=== PATIENT | male | born 1945 | race Caucasian/White ===

== ENCOUNTER → 2023-11-12 08:11 | Outpatient (REF) | payer MEDICARE, SELFPAY ==
[2023-11-12 09:19] LABS: Hemoglobin 14.5 g/dL (13.0-18.0)
[2023-11-12 09:42] LABS: ALT (SGPT) 17 U/L (0-50); AST (SGOT) 29 U/L (17-59); Blood Urea Nitrogen 41 mg/dl (9-20); Calcium 9.4 mg/dl (8.4-10.2); Carbon Dioxide 25 mmol/L (22-30); Chloride 104 mmol/L (98-107); Glucose 85 mg/dl (70-99); HDL Cholesterol 42 mg/dl; LDL Cholesterol, Calculated 70 mg/dl; Phosphorus 4.2 mg/dl (2.5-4.5); Potassium 4.5 mmol/L (3.5-5.1); Sodium 137 mmol/L (135-145); Total Cholesterol 138 mg/dl (50-199); Triglyceride 134 mg/dl (10-149); Very Low Density Lipoprotein 26 mg/dl (0-30); eGFR 31.82
[2023-11-12 09:44] LABS: Calcium 9.5 mg/dl (8.4-10.2)
[2023-11-12 10:24] LABS: Protein/creatinine Ratio 1.5; Urine Protein 69 mg/dl
[2023-11-12 14:51] LABS: Intact PTH 98.9 pg/ml (13.6-85.8)
== END ==
LOC: REG 08:11
PROVIDERS: ATTENDING PHYSICIAN Internal Medicine; FAMILY PHYSICIAN Specialist; REFERRING PHYSICIAN Internal Medicine
DX: E78.2 Mixed hyperlipidemia (principal); E78.1 Pure hyperglyceridemia; I10 Essential (primary) hypertension; N17.9 Acute kidney failure, unspecified
CPT/HCPCS: 36415; 80048; 80061; 82570; 83970; 84100; 84156; 84450; 84460; 85018

== ENCOUNTER → 2024-04-27 08:59 | Outpatient (REF) | payer MEDICARE, SELFPAY ==
[2024-04-27 10:09] LABS: Hemoglobin 14.9 g/dL (13.0-18.0)
[2024-04-27 10:46] LABS: Protein/creatinine Ratio 1.1; Urine Protein 195 mg/dl
[2024-04-27 11:20] LABS: Blood Urea Nitrogen 49 mg/dl (9-20); Carbon Dioxide 26 mmol/L (22-30); Chloride 101 mmol/L (98-107); Glucose 77 mg/dl (70-99); Phosphorus 4.7 mg/dl (2.5-4.5); Potassium 4.3 mmol/L (3.5-5.1); Sodium 141 mmol/L (135-145); eGFR 27.11
[2024-04-30 09:26] LABS: Intact PTH 80.6 pg/ml (13.6-85.8)
== END ==
LOC: REG 08:59
PROVIDERS: ATTENDING PHYSICIAN Specialist; FAMILY PHYSICIAN Internal Medicine; REFERRING PHYSICIAN Internal Medicine
DX: E11.9 Type 2 diabetes mellitus without complications (principal); I10 Essential (primary) hypertension; N18.32 Chronic kidney disease, stage 3b; R80.1 Persistent proteinuria, unspecified
CPT/HCPCS: 36415; 80048; 82570; 83970; 84100; 84156; 85018

== ENCOUNTER → 2024-05-03 09:18 | Outpatient (REF) | payer MEDICARE, SELFPAY | LOC: RCS 09:18 | PROVIDERS: ATTENDING PHYSICIAN Internal Medicine; FAMILY PHYSICIAN Internal Medicine | DX: I42.8 Other cardiomyopathies (principal); I50.22 Chronic systolic (congestive) heart failure; I34.0 Nonrheumatic mitral (valve) insufficiency; I35.0 Nonrheumatic aortic (valve) stenosis; I35.1 Nonrheumatic aortic (valve) insufficiency | CPT/HCPCS: 93306 ==

== ENCOUNTER → 2024-05-24 08:24 | Outpatient (REF) | payer MEDICARE, SELFPAY ==
[2024-05-24 10:28] LABS: ALT (SGPT) 19 U/L (0-50); AST (SGOT) 29 U/L (17-59); Alkaline Phosphatase 74 U/L (38-126); Blood Urea Nitrogen 63 mg/dl (9-20); Calcium 9.4 mg/dl (8.4-10.2); Carbon Dioxide 27 mmol/L (22-30); Chloride 101 mmol/L (98-107); Glucose 90 mg/dl (70-99); HDL Cholesterol 37 mg/dl; LDL Cholesterol, Calculated 62 mg/dl; Potassium 4.5 mmol/L (3.5-5.1); Sodium 137 mmol/L (135-145); Total Bilirubin 0.8 mg/dl (0.2-1.3); Total Cholesterol 134 mg/dl (50-199); Total Protein 6.5 g/dl (6.3-8.2); Triglyceride 175 mg/dl (10-149); Very Low Density Lipoprotein 35 mg/dl (0-30); eGFR 27.11
[2024-05-24 10:55] LABS: PSA, Total - Screen < 0.06 ng/ml (0.0-4.0)
[2024-05-24 11:46] LABS: Glycohemoglobin (HgbA1c) 6.8 % (4.0-5.6)
== END ==
LOC: REG 08:24
PROVIDERS: ATTENDING PHYSICIAN Internal Medicine; FAMILY PHYSICIAN Internal Medicine
DX: Z12.5 Encounter for screening for malignant neoplasm of prostate (principal); E11.22 Type 2 diabetes mellitus with diabetic chronic kidney disease; E78.2 Mixed hyperlipidemia
CPT/HCPCS: 36415; 80053; 80061; 83036; G0103

== ENCOUNTER → 2024-11-10 08:32 | Outpatient (REF) | payer MEDICARE, SELFPAY ==
[2024-11-10 09:03] LABS: Hemoglobin 13.9 g/dL (13.0-18.0)
[2024-11-10 09:54] LABS: Urine Albumin 3+ (Neg - Trace); Urine Bilirubin Negative (Negative); Urine Character Clear (Clear); Urine Color Yellow; Urine Glucose 4+ (Negative); Urine Ketone Negative (Negative); Urine Leukocyte Negative (Negative); Urine Nitrite Negative (Negative); Urine Occult Blood 4+ (Negative); Urine Urobilinogen Negative (Neg - 1+)
[2024-11-10 10:01] LABS: Blood Urea Nitrogen 48 mg/dl (9-20); Calcium 9.1 mg/dl (8.4-10.2); Carbon Dioxide 21 mmol/L (22-30); Chloride 110 mmol/L (98-107); Glucose 101 mg/dl (70-99); Phosphorus 3.8 mg/dl (2.5-4.5); Potassium 4.6 mmol/L (3.5-5.1); Sodium 140 mmol/L (135-145); eGFR 26.94
[2024-11-10 10:25] LABS: Urine Red Blood Cell 0-2 /HPF (0-2)
[2024-11-10 10:27] LABS: Urine Bacteria Few (Negative)
[2024-11-10 10:45] LABS: Urine Protein 343 mg/dl (0-12)
[2024-11-11 15:08] LABS: Intact PTH 135.3 pg/ml (13.6-85.8)
== END ==
LOC: REG 08:32
PROVIDERS: ATTENDING PHYSICIAN Specialist; FAMILY PHYSICIAN Internal Medicine
DX: N18.4 Chronic kidney disease, stage 4 (severe) (principal); E11.9 Type 2 diabetes mellitus without complications; R80.1 Persistent proteinuria, unspecified
CPT/HCPCS: 36415; 80048; 81003; 81015; 82570; 83970; 84100; 84156; 85018

== ENCOUNTER → 2025-04-24 08:27 | Outpatient (REF) | payer MEDICARE, SELFPAY ==
[2025-04-24 10:20] LABS: Hematocrit 43.7 % (39.0-52.0); Hemoglobin 14.2 g/dL (13.0-18.0); Mean Corp Hgb Conc. 32.5 g/dL (33.0-37.0); Mean Corpuscular Volume 97.5 fL (80.0-94.0); Nucleated Red Blood Cells % 0 % (-); Platelet Count 156 10^3/uL (130-400); Red Cell Dist. Width 13.2 % (11.5-14.5)
[2025-04-24 10:45] LABS: Glycohemoglobin (HgbA1c) 7.5 % (4.0-5.9)
[2025-04-24 10:51] LABS: ALT (SGPT) 33 U/L (0-50); AST (SGOT) 33 U/L (17-59); Albumin 3.6 g/dl (3.5-5.0); Alkaline Phosphatase 87 U/L (38-126); Blood Urea Nitrogen 50 mg/dl (9-20); Calcium 9.0 mg/dl (8.4-10.2); Carbon Dioxide 25 mmol/L (22-30); Chloride 104 mmol/L (98-107); Glucose 100 mg/dl (70-99); HDL Cholesterol 39 mg/dl; LDL Cholesterol, Calculated 41 mg/dl; Potassium 4.4 mmol/L (3.5-5.1); Sodium 136 mmol/L (135-145); Total Protein 6.2 g/dl (6.3-8.2); Very Low Density Lipoprotein 31 mg/dl (0-30); eGFR 24.48
[2025-04-24 11:01] LABS: PSA, Total - Screen < 0.06 ng/ml (0.0-4.0)
[2025-04-24 11:09] LABS: Microalbumin, Random Urine > 57.0 mg/dl (0.6-1.7)
== END ==
LOC: REG 08:27
PROVIDERS: ATTENDING PHYSICIAN Specialist; FAMILY PHYSICIAN Internal Medicine; REFERRING PHYSICIAN Internal Medicine
DX: M18.4 Other bilateral secondary osteoarthritis of first carpometacarpal joints (principal); R80.1 Persistent proteinuria, unspecified; N25.81 Secondary hyperparathyroidism of renal origin; C61 Malignant neoplasm of prostate; E78.1 Pure hyperglyceridemia; E78.2 Mixed hyperlipidemia; E11.9 Type 2 diabetes mellitus without complications; I10 Essential (primary) hypertension; I35.0 Nonrheumatic aortic (valve) stenosis; I48.0 Paroxysmal atrial fibrillation; N18.32 Chronic kidney disease, stage 3b; Z12.5 Encounter for screening for malignant neoplasm of prostate
CPT/HCPCS: 36415; 80053; 80061; 82043; 82570; 83036; 83970; 84100; 84156; 84443; 85025; G0103

== ENCOUNTER → 2025-05-23 15:22 | Outpatient (REF) | payer MEDICARE, SELFPAY | LOC: RCS 15:22 | PROVIDERS: ATTENDING PHYSICIAN Internal Medicine; FAMILY PHYSICIAN Internal Medicine | DX: I50.22 Chronic systolic (congestive) heart failure (principal); I34.0 Nonrheumatic mitral (valve) insufficiency; I35.0 Nonrheumatic aortic (valve) stenosis; I35.1 Nonrheumatic aortic (valve) insufficiency | CPT/HCPCS: 93306 ==